=== PATIENT | female | born 1990 | race Caucasian/White ===

== ENCOUNTER 2020-12-31 08:54 | Emergency (ER) | payer OTHER, SELFPAY ==
--- NOTE | ~2020-12-31 | XR_ITS ---
EXAMINATION: XR chest 1V CLINICAL INFORMATION: Shortness of breath COMPARISON: None TECHNIQUE: XR chest 1V Tubes and lines: None Lungs and Marlin: Both lungs are clear. Pleura: Normal. Costophrenic angles are sharp. No pneumothorax. Heart and mediastinum: The mediastinum is within normal limits.. Bones: Skeletal structures included are normal for patient's age. XR/XR chest 1V IMPRESSION: Normal chest x-ray.
[2020-12-31 09:05] VITALS: BP 126/79; PULSE 91; RESP 18; TEMP 36.9; O2SAT 95; BMI 37.8
--- NOTE | 2020-12-31 09:18 | ED.GENADULT ---
HPI - General Adult General Chief complaint: General Medical Stated complaint: NUMBNESS AND TINGLING L SIDE Time Seen by Provider: 12/31/20 09:05 History of Present Illness HPI narrative: Patient complains of intermittent episodes of tingling in fingers and feet, deep breathing and shortness of breath and heart racing associated with anxiety that have been happening more and more frequently, she has no suicidal or homicidal thoughts she does not hear any voices she is not having any chest pain or shortness of breath now but does feel very anxious Related Data Previous Rx's Medication Instructions Recorded lorazepam [Ativan] 1 mg PO TID PRN #10 tab 12/31/20 Allergies Allergy/AdvReac Type Severity Reaction Status Date / Time tree and shrub pollen [TREE] Allergy Intermediate NASAL Verified 12/31/20 09:08 CONGESTION Review of Systems Review of Systems: Positives are anxiety, intermittent palpitations and shortness of breath and rapid breathing and tingling in fingers and toes Negatives are no fever no chills no dizziness no weakness no fainting no loss of consciousness no headache no neck pain no abdominal pain no nausea vomiting or diarrhea no urinary symptoms no rash no numbness or weakness Yes all other systems are reviewed and are negative PMFSH Past Medical History Source: nursing notes reviewed Social History Social History Advance Directives: No Advance Directives Information Provided: No Physical Exam Vital Signs: Vital Signs: Last Vital Signs Temp 98.5 F 12/31/20 09:05 Pulse 91 12/31/20 09:05 Resp 18 12/31/20 09:05 BP 126/79 12/31/20 09:05 Pulse Ox 95 12/31/20 09:05 Body Mass Index 37.8 General appearance is anxious appearing, no acute distress, cooperative A&O x3 Head is normocephalic atraumatic Pupils equal round reactive to light and extraocular motions are intact The pharynx is clear with moist mucous membranes The neck is supple The chest is clear to auscultation full symmetric equal breath sounds Heart rate and rhythm regular no murmur Abdomen soft nontender Extremities no rash, full range of motion x4 Neuro sensation is full and intact and symmetrical in extremities, motor is 5/5 x4, patient can walk on tiptoes, can walk on heels, gait and balance are normal, verbal interaction speech and understanding are normal, cerebellar is normal Course Course Course Narrative: EKG was a normal sinus rhythm with no acute ischemic change, no acute ST changes, [place] and QRS duration are normal, QTC is normal Chest x-ray was normal Glucose in a fingerstick was normal The patient was given an Ativan and had some relief of symptoms and is discharged to follow with primary care doctor to discuss medication for anxiety and will use the Ativan as a rescue medication for anxiety attack if needed Medical Decision Making Lab Data Labs: Lab Results 12/31/20 Range/Units 09:56 POC Glucose 87 (60-115) mg/dL Discharge Plan Discharge Clinical Impression: Anxiety Patient Disposition: Home, Self-Care Additional Instructions: I believe your symptoms are from anxiety and anxiety attacks, in the ER there was no sign of anything dangerous or abnormal physically Her exam and vital signs were normal as was EKG chest x-ray and fingerstick to check her glucose Return any time for any worse condition or concerns, feelings of self-harm, chest pain shortness of breath any concerns Follow with primary doctor when possible for discussion of possible preventative medications that will relieve her frequent anxiety There are many medications that can be helpful and if this is happening frequetly medication may be helpful Prescriptions: New lorazepam [Ativan] 1 mg tablet 1 mg PO TID PRN (Reason: anxiety) Qty: 10 RF: 0
--- NOTE | 2020-12-31 09:50 | ECG_ITS ---
Test Reason : ARM TINGLING Blood Pressure : / mmHG Vent. Rate : 075 BPM Atrial Rate : 075 BPM P-R Int : 140 ms QRS Dur : 078 ms QT Int : 386 ms P-R-T Axes : 041 067 050 degrees QTc Int : 431 ms Normal sinus rhythm Normal ECG When compared with ECG of 28-MAR-2010 15:02, No significant change was found Referred By: Chris Barr Electronically Signed By:Ryan Hankins
[2020-12-31 10:03] LABS: Glucose, Whole Blood 87 mg/dL (60-115)
[2020-12-31] MEDS: LORazepam 1 MG TABLET PO (10:14)
== END 2020-12-31 11:02 | disposition home or self-care (01) ==
PROVIDERS: Emergency Provider Emergency Medicine; PCP Nurse Practitioner Adult Health
DX: F41.9 Anxiety disorder, unspecified (principal); R20.2 Paresthesia of skin
CPT/HCPCS: 71045; 82947; 93005; 99283

== ENCOUNTER 2021-03-20 21:49 | Emergency (ER) | payer OTHER, SELFPAY ==
[2021-03-20 21:57] VITALS: BP 118/71; PULSE 89; RESP 18; TEMP 36.8; O2SAT 97
[2021-03-21 03:05] VITALS: BP 106/60; PULSE 75; RESP 18; O2SAT 99; BMI 36.8
[2021-03-21 03:08] VITALS: BP 106/60; PULSE 75; RESP 18; O2SAT 99
--- NOTE | 2021-03-21 03:26 | ED_ITS ---
HPI - Headache General Chief Complaint: Headache Stated Complaint: Headache Time Seen by Provider: 03/21/21 02:50 Source: patient Mode of arrival: ambulatory History of Present Illness HPI Narrative: Headache on the right side starting at the base the neck and wrapping anteriorly ?into the back of the eye? has been ongoing for 3 weeks without associated fever, chills, nausea, vomiting, abdominal pain, urinary pain/burning/frequency. Patient states that she noticed that she gets these headaches every time approximately mid cycle. She has been unable to get an appoint with her PCP until March. Patient denies any speech/visual/hearing changes and otherwise denies any numbness/tingling in her extremities. Related Data Previous Rx's Medication Instructions Recorded lorazepam [Ativan] 1 mg PO TID PRN #10 tab 12/31/20 ketorolac 10 mg PO Q6H PRN 5 Days #20 tab 03/21/21 Allergies Allergy/AdvReac Type Severity Reaction Status Date / Time tree and shrub pollen [TREE] Allergy Intermediate NASAL Verified 12/31/20 09:08 CONGESTION Review of Systems Review of Systems: Pertinent positives and negatives as stated in HPI 10 point review of systems is otherwise negative. PMFSH Past Medical History Source: nursing notes reviewed Medical History No known health problems Social History Social History Advance Directives: No Patient : No Physical Exam Vital Signs: Vital Signs: Last Vital Signs Temp 98.3 F 03/20/21 21:57 Pulse 74 03/21/21 04:48 Resp 16 03/21/21 04:48 BP 128/73 03/21/21 04:48 Pulse Ox 99 03/21/21 03:08 Body Mass Index 36.8 VITAL SIGNS: Reviewed. GENERAL: Well developed, well nourished, in no acute distress. HEAD: Normocephalic/atraumatic EYES: PERRLA, EOMI intact without pain, no nystagmus/pallor/icterus noted EARS: Ext canals without abnormality, TMs non-bulging and non-erythematous NOSE: Nares patent bilateral OROPHARYNX: no oral lesions noted, posterior pharynx clear LUNGS: Normal breath sounds. No adventitious sounds or accessory muscle use. SpO2<99> CARDIOVASCULAR: Regular rate and rhythm without noted murmurs ABDOMEN: Soft, non-tender, non-distended with bowel sounds. NEUROLOGIC: Alert and oriented x 4. Strength and sensation to light touch were grossly intact x 4. Course Course Course Narrative: 31-year-old female with history and clinical presentation consistent with headache and possible migraine has yet to be diagnosed. No concern for neurologic pathologies or infections and patient was provided with combination migraine treatment and re-evaluated. On re-evaluation patient has had complete resolution of her symptoms and is requesting to be discharged. Discharge Plan Discharge Clinical Impression: Headache Patient Disposition: Home, Self-Care Instructions: General Headache (ED) Additional Instructions: 1. Follow-up with your primary care provider in the next 2-3 days for re- evaluation and further outpatient management. Recommend starting a a headache journal. 2. Tylenol 1000 mg, orally, every 6 hours as needed for pain control. Do not ex ceed 4000 mg within 24 hours. Return to the ER for any acute worsening of symptoms. Prescriptions: New ketorolac 10 mg tablet 10 mg PO Q6H PRN (Reason: pain) 5 Days Qty: 20 RF: 0 No Action lorazepam [Ativan] 1 mg tablet 1 mg PO TID PRN (Reason: anxiety) Qty: 10 RF: 0 Referrals: Physician,Unknown [Primary Care Provider] - 2 days
[2021-03-21] MEDS: Butalb/Acetamin/Caff 50/325/40 TABLET 1 TAB PO (03:44)
[2021-03-21] MEDS: Ketorolac Tromethamine 15 MG/ML VIAL IM (03:44)
[2021-03-21 04:46] VITALS: BP 128/73; PULSE 74; RESP 16
[2021-03-21 04:48] VITALS: BP 128/73; PULSE 74; RESP 16
== END 2021-03-21 05:07 | disposition home or self-care (01) ==
PROVIDERS: Emergency Provider Student in an Organized Health Care Education/Training Program
DX: R51.9 Headache, unspecified (principal)
CPT/HCPCS: 96372; 99284; J1885

== ENCOUNTER 2023-11-10 22:00 | Inpatient (IN) | payer BC, SELFPAY ==
--- NOTE | ~2023-11-10 | CT_ITS ---
EXAMINATION: CT SOFT TISSUE NECK WITH CONTRAST CLINICAL INFORMATION: Facial swelling. Concern for abscess. COMPARISON: None available. TECHNIQUE: Following the intravenous administration of 60 mL of Omnipaque 350 intravenous contrast, helical imaging was performed in the axial plane with generation of coronal and sagittal reformatted images. This CT examination was performed using dose optimization techniques as appropriate, variously including the following: *Automated exposure control *Adjustment of mA and/or kV according to patient size (this includes techniques or standardized protocols for targeted exams where dose is matched to indication/reason for exam; i.e. extremities or head) *Use of iterative reconstruction technique DLP: 575 mGy-cm FINDINGS: The nasopharynx, oropharynx and hypopharynx are unremarkable. The palatine and lingual tonsils are prominent. There are scattered cervical lymph nodes measuring up to 2 cm in the submandibular region on the right. The parotid glands, submandibular glands and thyroid glands are unremarkable. There is a small right maxillary sinus opacity. The remaining visualized maxillofacial sinuses and mastoids are clear. The intracranial structures are unremarkable. The upper lung khalil are clear. There is right mandibular soft tissue swelling with a soft tissue defect and subcutaneous infiltration without fluid collection. CT/CT soft tissue neck w IV con IMPRESSION: Right mandibular soft tissue swelling with soft tissue defect and subcutaneous infiltration without fluid collection. Prominent lingual and palatine tonsils of uncertain current significance.
[2023-11-10 22:04] VITALS: BP 125/74; PULSE 92; RESP 16; TEMP 36.8; O2SAT 97; BMI 39.8
[2023-11-10] MEDS: Lidocaine HCl 2 % MPF 5 ML VIAL 10 ML INFILTRATI (22:52)
[2023-11-10] MEDS: traMADoL HCL 50 MG TABLET PO (22:52)
[2023-11-10 23:17] VITALS: BP 127/85; PULSE 85; RESP 14; TEMP 36.6; O2SAT 96
[2023-11-10 23:35] LABS: Basophils Absolute Auto 0.1 X10*3/uL (0.0-0.2); Basophils Percent Auto 0.8 % (0-2); Eosinophils Absolute Auto 0.1 X10*3/uL (0.0-0.4); Eosinophils Percent Auto 1.3 % (0-4); Hematocrit 38.2 % (37.0-47.0); Hemoglobin 12.8 g/dl (12.0-16.0); Imm Gran Abs Auto 0.02 X10*3/uL (0.00-0.03); Imm Gran Pct Auto 0.2 % (0.0-0.4); Lymphocytes Absolute Auto 1.8 X10*3/uL (1.2-4.9); Lymphocytes Percent Auto 19.6 % (20-40); MANUAL DIFF FLAG NO; Mean Corpuscular HGB Conc 33.5 g/dl (31.0-35.0); Mean Corpuscular Hemoglobin 28.2 pg (27.0-33.0); Mean Corpuscular Volume 84.1 fL (80.0-98.0); Mean Platelet Volume 8.7 fL (9.4-12.3); Monocytes Absolute Auto 0.6 X10*3/uL (0.1-1.2); Monocytes Percent Auto 6.6 % (2-11); Neutrophils Absolute Auto 6.4 x10*3/uL (2.0-8.3); Neutrophils Percent Auto 71.5 % (45-73); Platelet Count 408 X10*3/uL (160-400); Red Blood Count 4.54 X10*6/uL (4.20-5.50); Red Cell Distribution Width 12.8 % (11.0-16.0)
--- NOTE | 2023-11-10 23:35 | ED.SKABFB ---
HPI - Skin/Abscess/Foreign Bdy General Chief complaint: Skin/Abscess/Foreign Body Stated complaint: rt side pimple/abscess Time Seen by Provider: 11/10/23 22:39 Source: patient Mode of arrival: ambulatory Limitations: no limitations History of Present Illness HPI narrative: Patient comes to the emergency room complaining of an abscess to the right side of the jaw. Patient states it started out as a pimple approximately 4 days ago. Two days ago, patient will needle to the fire and then inserted on the abscess, swirled it to make the opening bigger to drain the pus. Patient states that over last 2 days, the abscess increase in size, no very painful to touch. Patient denies fever or chills. Patient has noted that there is pus draining Related Data Previous Rx's Medication Instructions Recorded lorazepam 1 mg tablet (Ativan) 1 mg PO TID PRN anxiety #10 tabs 12/31/20 ketorolac 10 mg tablet 10 mg PO Q6H PRN pain 5 days #20 03/21/21 tabs Allergies Allergy/AdvReac Type Severity Reaction Status Date / Time tree and shrub pollen [TREE] Allergy Intermediate NASAL Verified 11/10/23 22:04 CONGESTION Review of Systems Review of Systems: Constitutional : No Weight loss, No Fever, No Chills, No Night Sweats, No Fatigue, No Malaise ENT/Mouth : No Hearing loss, No Ear Pain, No Nasal Congestion, No Sinus Pain, No Hoarseness, No sore throat, No Rhinorrhea, No Swallowing Difficulty Eyes: No Eye Pain, No Swelling, No Redness, No Foreign Body, No Discharge, No Vision Changes Cardiovascular : No Chest Pain, No SOB, No Dyspnea on Exertion, No Orthopnea, No Edema, No Palpitations Respiratory : No Cough, No Sputum, No Wheezing, No Smoke Exposure, No Dyspnea Gastrointestinal : No Nausea, No Vomiting, No Diarrhea, No Constipation, No abdominal Pain, No Hematochezia, No Melena Genitourinary : no irregular bleeding, No Dysuria, No Urinary Frequency, No Hematuria, No Urinary Incontinence, No Urgency, No Flank Pain, No Urinary Flow Changes, No Hesitancy Musculoskeletal : No joint pain, No Myalgias, No Joint Swelling Skin : Complaining of an enlarging abscess on the right side of the jaw Neuro : No Weakness, No Numbness, No Paresthesias, No Loss of Consciousness, No Dizziness, No Headache Psych : No Anxiety/Panic, No Depression, No SI/HI/AH/VH, No Social Issues, Heme/Lymph: No Bruising, No Bleeding,No Lymphadenopathy Endocrine : No Polyuria, No Polydipsia, No Temperature Intolerance [facility] Past Medical History Medical History No known health problems Social History Social History Smoked in Last 30 Days: No Use of substances other than those prescribed or required for medical reasons: No Advance Directives: No Advance Directives Information Provided: No Patient : No Physical Exam Vital Signs: Vital Signs: Last Vital Signs Temp 97.8 F 11/10/23 23:17 Pulse 85 11/10/23 23:17 Resp 14 11/10/23 23:17 BP 127/85 11/10/23 23:17 Pulse Ox 96 11/10/23 23:17 O2 Del Method Room Air 11/10/23 23:17 BMI result Body Mass Index 39.8 Const: Other: Appearance: Alert. Oriented X3. No acute distress. Eyes: Pupils equal, round and reactive to light. ENT: Pharynx normal. Neck: Normal inspection. Neck supple. No lymph nodes noted. No crepitus CVS: Normal heart rate and rhythm. Pulses normal. Normal S1 and S2 Respiratory: No respiratory distress. Breath sounds normal. No Wheezing. No rales Abdomen: Soft and nontender. No rigidity. No distention. Skin: Skin warm and dry. Patient has 1.5 cm x 1.5 cm on the right side of the jaw, approximately 1 cm deep. Patient has erythema around the area, pus draining see pictures below Extremities: No lower extremity edema. No Lacerations. No Rash Neuro: Oriented X 3. No motor deficit. No sensory deficit. Moving all extremities. No slurred speech. CN 2 through 12 grossly intact Psych: calm, cooperative, normal affect Course Course Course Narrative: - Medications Administered Generic Name Dose Route Start Last Admin Trade Name Freq PRN Reason Stop Dose Admin Vancomycin HCl 2,000 mg in 500 mls @ 250 mls/hr 11/10/23 23:30 11/11/23 00:37 Vancomycin/Ns IV 11/11/23 01:29 250 mls/hr ONCE ONE Administration Discontinued Medications Generic Name Dose Route Start Last Admin Trade Name Josefa PRN Reason Stop Dose Admin Sodium Chloride 1,000 mls @ 999 mls/hr 11/10/23 23:12 11/10/23 23:52 Ns IVCONT 11/11/23 00:12 999 mls/hr .Q1H1M ONE Administration Piperacillin Sod/Tazobactam 50 mls @ 100 mls/hr 11/10/23 23:12 11/11/23 00:26 Sod 3.375 gm/ Sodium Chloride IV 11/10/23 23:41 Infused ONCE ONE Infusion Lidocaine HCl 10 ml 11/10/23 22:42 11/10/23 22:52 Lidocaine Hcl 2 % Mpf 5 Ml Vial INFILTRATI 11/10/23 22:43 10 ml ONCE ONE Administration Tramadol HCl 50 mg 11/10/23 22:43 11/10/23 22:52 Tramadol Hcl 50 Mg Tablet PO 11/10/23 22:44 50 mg ONCE ONE Administration Medical Decision Making Medical Decision Making [facility] Narrative: -the skin was numbed with lidocaine and has not. There was a blister with pus protruding. It was removed, which revealed a deep ulcer in the skin. The area was irrigated, packing was applied. -patient's labs are unremarkable. However, this is an extensive lesion to the face. Patient was given IV antibiotics, vanco and Zosyn. The surrounding area has significant induration. A CT scan has been ordered to rule out any other abscesses underneath the skin in the surrounding area. -the CT scan is pending. -I discussed the patient with Dr. Marroquin from the Medicine team, patient being admitted pending the CT scan. -sign-out given to Dr. House Differential Diagnosis Differential Diagnoses: The differential diagnosis associated with the presentation includes (Abscess, cellulitis, puncture wound) Admission/Observation Consideration of admission/observation: Escalation of care including admission/observation considered Consult Healthcare Provider Management of the patient was discussed with: Hospitalist Lab Data [facility] Lab Attestation statement: I reviewed the patient's lab results. 11/10/23 23:26 11/10/23 23:26 Labs: Lab Results 11/10/23 Range/Units 23:26 WBC 9.0 (4.8-10.8) X10*3/uL RBC 4.54 (4.20-5.50) X10*6/uL Hgb 12.8 (12.0-16.0) g/dl Hct 38.2 (37.0-47.0) % MCV 84.1 (80.0-98.0) fL MCH 28.2 (27.0-33.0) pg MCHC 33.5 (31.0-35.0) g/dl RDW 12.8 (11.0-16.0) % Plt Count 408 H (160-400) X10*3/uL MPV 8.7 L (9.4-12.3) fL Immature Gran % (Auto) 0.2 (0.0-0.4) % Neut % (Auto) 71.5 (45-73) % Lymph % (Auto) 19.6 L (20-40) % [place] % (Auto) 6.6 (2-11) % Eos % (Auto) 1.3 (0-4) % Baso % (Auto) 0.8 (0-2) % Lymph # (Auto) 1.8 (1.2-4.9) X10*3/uL [place] # (Auto) 0.6 (0.1-1.2) X10*3/uL Eos # (Auto) 0.1 (0.0-0.4) X10*3/uL Baso # (Auto) 0.1 (0.0-0.2) X10*3/uL Abs Immat Gran (auto) 0.02 (0.00-0.03) X10*3/uL Absolute Neuts (auto) 6.4 (2.0-8.3) x10*3/uL Absolute Nucleated RBC 0.000 (0.0-0.012) X10*3/uL Nucleated RBC % (auto) 0.0 (0.0-0.2) /100WBC Sodium 141 (135-145) mmol/L Potassium 3.9 (3.3-5.1) mmol/L Chloride 108 (96-108) mmol/L Carbon Dioxide 23 (22-29) mmol/L Anion Gap 14 (12-20) BUN 12 (9-16) mg/dL Creatinine 1.16 (0.5-1.4) mg/dL Estim Creat Clear Calc 87.4 Estimated GFR 54 Random Glucose 110 (60-115) mg/dL Lactic Acid 1.2 (0.5-2.0) mmol/L Calcium 9.1 (8.4-10.2) mg/dL Total Bilirubin 0.3 (0.0-1.0) mg/dL Direct Bilirubin 0.1 (0.0-0.5) mg/dL AST 11 (5-31) U/L ALT 13 (0-31) U/L Alkaline Phosphatase 70 (39-117) U/L Total Protein 7.3 (6.5-8.0) g/dL Albumin 4.0 (3.5-5.0) g/dL Critical Care Time Critical Care Time Critical Care Time: Yes Total Critical Care Time: 60 Attestation: I have personally provided critical care time. Time includes review of lab data, radiology results, discussion with consultants, and monitoring for potential decompensation. Intervention performed as documented. Discharge Plan Discharge Clinical Impression: Abscess of skin or subcutaneous tissue Patient Disposition: Admitted As Inpatient
[2023-11-10 23:46] LABS: Lactic Acid 1.2 mmol/L (0.5-2.0)
[2023-11-10 23:52] LABS: Alanine Aminotransferase 13 U/L (0-31); Alkaline Phosphatase 70 U/L (39-117); Anion Gap 14 (12-20); Aspartate Amino Transferase 11 U/L (5-31); Bilirubin Direct 0.1 mg/dL (0.0-0.5); Bilirubin Total 0.3 mg/dL (0.0-1.0); Blood Urea Nitrogen 12 mg/dL (9-16); Calcium 9.1 mg/dL (8.4-10.2); Carbon Dioxide 23 mmol/L (22-29); Chloride 108 mmol/L (96-108); Creatinine Clr Calc Pharmacy 87.4; Estimated Glomerular Filt Rate 54; Glucose Random 110 mg/dL (60-115); Potassium 3.9 mmol/L (3.3-5.1); Sodium 141 mmol/L (135-145); Total Protein 7.3 g/dL (6.5-8.0)
[2023-11-10] MEDS: 0.9 % Sodium Chloride 1,000 ML 999 ML IVCONT (23:52)
[2023-11-10] MEDS: Piperacillin Sodium/Tazobactam 3.375 GM in 0.9 % Sodium Chloride 50 ML IV (23:53)
[2023-11-11] MEDS: vancomycin/NS 2,000 MG/500 ML PLAST..BAG 250 MG IV (00:37)
[2023-11-11] MEDS: iohexoL 350 MG/ML 100 ML INFUS..BTL 60 ML IV (00:57)
[2023-11-11] MEDS: 0.9 % Sodium Chloride 1,000 ML 100 ML IVCONT ×2 (01:14→11:22)
--- NOTE | 2023-11-11 01:54 | P.HPHOSP_ITS ---
History of Present Illness Date of Service: 11/11/23 Attending physician on admission: Una Valdez Chief Complaint: Facial pain Kimberly Landis is a 33 years old woman with no significant past medical history presents to the emergency department complaining of right face/jaw swelling and pain after popping a pimple. The next day she inserted a needle to the area to drain it as a pain pill was getting bigger. She denied any fevers or chills. She did not report any headache, palpitations or dizziness. She also denied any cardiopulmonary, gastrointestinal or genitourinary symptoms. In the ED, she was found to have stable vital signs. Blood workup showed no leukocytosis. Lactic acid is normal. Renal liver function are normal. And there are no significant electrolyte imbalances. A soft tissue neck CT scan was ordered, results are still pending. ED tx: Zosyn 3.375 g IV, vancomycin 2 g, tramadol 50 mg PO. Review of Systems 2 Review of Systems: All 12 systems were reviewed and normal except as noted in HPI. [facility] Medical History (Updated 11/11/23 @ 02:13 by Una Valdez MD) Anxiety No known health problems Social History Patient Tobacco Use Status: Never used Tobacco Smoked in Last 30 Days: No Use of substances other than those prescribed or required for medical reasons: No Advance Directives: No Advance Directives Information Provided: No Nutrition Risks: No Nutritional Risk Patient : No Meds Allergies Allergy/AdvReac Type Severity Reaction Status Date / Time tree and shrub pollen [TREE] Allergy Intermediate NASAL Verified 11/10/23 22:04 CONGESTION Active Medications: Current Medications Acetaminophen (Acetaminophen 325 Mg Tablet) 975 mg PO Q6H PRN PRN Reason: Pain, Moderate(Pain Scale 4-6) Sodium Chloride (Ns) 1,000 mls @ 100 mls/hr IVCONT .Q10H JED Last Admin: 11/11/23 01:14 Dose: 100 mls/hr Piperacillin Sod/Tazobactam (Sod 3.375 gm/ Sodium Chloride) 50 mls @ 100 mls/hr IV Q6H JED Ibuprofen (Ibuprofen 400 Mg Tablet) 400 mg PO Q6H PRN PRN Reason: Pain, Severe (Pain Scale 7-10) Pharmacy Consult (Consult Rx Vancomycin Dosing) 1 each MISCELLANE DAILY PRN PRN Reason: Consult order Sodium Chloride (0.9 % Sodium Chloride Flush 3 Ml Syringe) 3 ml IVFLUSH QSHIFT [facility] Home Medications Medication Instructions Recorded Confirmed Last Taken Type sertraline 50 mg tablet 50 mg PO DAILY 11/11/23 11/11/23 Unknown History Physical Exam 2 Vital Signs and Narrative: Vital Signs: Last Vital Signs Temp 97.8 F 11/10/23 23:17 Pulse 85 11/10/23 23:17 Resp 14 11/10/23 23:17 BP 127/85 11/10/23 23:17 Pulse Ox 96 11/10/23 23:17 O2 Del Method Room Air 11/10/23 23:17 BMI result Body Mass Index 39.8 Constitutional - Awake and Alert, No apparent distress. Afebrile. HEENT- Normocephalic. Pupils equally round. No scleral icterus. Right mandibular area with palpable indurated area, ulcerated area and erythematous borders. Heart - S1S2, RRR. Lungs - Normal lung expansion, Normal respiratory effort, No respiratory distress, CTA bilaterally Gastrointestinal - NT / ND Extremities - no swelling Skin - Warm/Dry Neurological - Alert & oriented x3. No focal weakness grossly noted. Normal speech. Normal behavior. Psychological - Appropriate affect Results Labs 11/10/23 23:26 11/10/23 23:26 Labs: Laboratory Results - last 24 hr 11/10/23 23:26 MCV 84.1 MCH 28.2 MCHC 33.5 RDW 12.8 Plt Count 408 H MPV 8.7 L Immature Gran % (Auto) 0.2 Neut % (Auto) 71.5 Lymph % (Auto) 19.6 L [place] % (Auto) 6.6 Eos % (Auto) 1.3 Baso % (Auto) 0.8 Lymph # (Auto) 1.8 [place] # (Auto) 0.6 Eos # (Auto) 0.1 Baso # (Auto) 0.1 Abs Immat Gran (auto) 0.02 Absolute Neuts (auto) 6.4 Absolute Nucleated RBC 0.000 Nucleated RBC % (auto) 0.0 Anion Gap 14 Estim Creat Clear Calc 87.4 Estimated GFR 54 Random Glucose 110 Lactic Acid 1.2 Calcium 9.1 Total Bilirubin 0.3 Direct Bilirubin 0.1 AST 11 ALT 13 Alkaline Phosphatase 70 Total Protein 7.3 Albumin 4.0 Assessment and Plan (1) Abscess of skin or subcutaneous tissue: Qualifiers: Site of cutaneous abscess: face Qualified Code(s): L02.01 - Cutaneous abscess of face Status: Acute (2) Anxiety: Status: Acute Plan Kimberly Landis is a 33 years old woman admitted with: * Right facial abscess associated with cellulitis. No sepsis criteria. Pus was removed in ED with local anesthetic (no I&D). Ulcerated area. Admit to hospitalist service. Continue empiric IV antibiotic therapy with vancomycin and Zosyn. Motrin and Tylenol as needed for pain. Check nasal MRSA. Local care. * History of anxiety. Continue sertraline. DVT prophylaxis: None. Patient is ambulating well. Code status: Full. Patient will need at least 2 midnight for right facial abscess and cellulitis treatment. The infection is quite extensive and localize in the face. She will benefit from empiric IV antibiotic therapy with Zosyn and vancomycin. Quality Stroke Does the patient have a stroke diagnosis?: No VTE Prior VTE?: No VTE Risk Level:: Medical - low VTE Device Contraindication: Treatment Not Indicated VTE Drug Contraindication: Treatment Not Indicated
[2023-11-11] MEDS: ondansetron HCL 4 MG/2 ML VIAL IVPUSH (03:13)
[2023-11-11 04:00] VITALS: BP 119/65; PULSE 92; RESP 16; TEMP 36.2; O2SAT 100
[2023-11-11] MEDS: Piperacillin Sodium/Tazobactam 3.375 GM in 0.9 % Sodium Chloride 50 ML IV ×4 (05:53→23:03)
[2023-11-11 05:56] LABS: MANUAL DIFF FLAG NO
[2023-11-11 06:00] LABS: Basophils Absolute Auto 0.1 X10*3/uL (0.0-0.2); Basophils Percent Auto 0.4 % (0-2); Eosinophils Absolute Auto 0.1 X10*3/uL (0.0-0.4); Eosinophils Percent Auto 0.6 % (0-4); Hemoglobin 12.2 g/dl (12.0-16.0); Imm Gran Abs Auto 0.05 X10*3/uL (0.00-0.03); Imm Gran Pct Auto 0.4 % (0.0-0.4); Lymphocytes Absolute Auto 1.6 X10*3/uL (1.2-4.9); Lymphocytes Percent Auto 13.3 % (20-40); Mean Corpuscular Hemoglobin 28.4 pg (27.0-33.0); Mean Corpuscular Volume 86.2 fL (80.0-98.0); Mean Platelet Volume 9.4 fL (9.4-12.3); Monocytes Absolute Auto 0.7 X10*3/uL (0.1-1.2); Monocytes Percent Auto 5.5 % (2-11); Neutrophils Absolute Auto 9.9 x10*3/uL (2.0-8.3); Neutrophils Percent Auto 79.8 % (45-73); Platelet Count 396 X10*3/uL (160-400); Red Blood Count 4.29 X10*6/uL (4.20-5.50); Red Cell Distribution Width 12.8 % (11.0-16.0); White Blood Count 12.4 X10*3/uL (4.8-10.8)
[2023-11-11 07:39] VITALS: BP 111/65; PULSE 91; RESP 18; TEMP 36.3; O2SAT 99
--- NOTE | 2023-11-11 08:29 | PHA.MEDREC ---
Pharmacy Consult ? Medication Reconciliation Pharmacy has completed the medication reconciliation with patient, pt confirmed meds.
--- NOTE | 2023-11-11 09:50 | MHC.CM.PN ---
Patient is from home w/ . Functionally independent. No services or DME. PCP: Martha Washington, MARGE @ [facility] HCP: Patient completed HCP naming agents 1) Pedro Wu [phone], 2) mother Cinthya Woods [phone] DP: Goal is home self care, does not anticipate the need for any services, to transport. CM will continue to follow.
[2023-11-11 10:05] LABS: Creatinine Clr Calc Pharmacy 104.6; Estimated Glomerular Filt Rate > 60
--- NOTE | 2023-11-11 10:34 | PHA.PROG ---
Admission Date/Time: November 11, 2023 00:50 Indication: Skin Weight in k.8 kg Adjusted body weight in K.3 Serum Creatinine - Last 168 Hours 11/10/23 11/11/23 23:26 09:17 Creatinine 1.16 0.97 Estimated CrCl and GFR - Last 168 Hours 11/10/23 11/11/23 23:26 09:17 Estim Creat Clear Calc 87.4 104.6 Estimated GFR 54 > 60 Vancomycin Loading Dose: 2,000 mg Current Vancomycin Dosing Regimen: 1,250 mg Q12H Vancomycin Monitoring using AUC goal of 400 - 600 range with trough as surrogate marker: 473 Date and Time for next Vancomycin Level to be drawn: 11/12/23 at 10:00 Pharmacist Comments on Vancomycin Plan: Vancomycin dosing will take advantage of [employer] as a clinical decision support tool that uses Bayesian modeling to calculate individual patient's pharmacokinetic parameters and forecast the patient's drug concentration time course with the target goal AUC 24 range of 400 - 600 mg/L/hr.
[2023-11-11] MEDS: vancomycin HCL 1,250 MG in 0.9 % Sodium Chloride 250 ML 166.67 MG IV ×2 (12:16→23:44)
--- NOTE | 2023-11-11 12:35 | PM.EVENT ---
Event Note Date of Service: 11/11/23 Event Note: Seen and evaluated this morning Denies any fever or chills Wound covered by dressing Continue IV antiibotics Time Spent With Patient Time: Total time managing care of this patient today ____ minutes.
--- NOTE | 2023-11-11 14:55 | HO.WOUND ---
Wound Consult: Initial 33yr old? admitted to [facility] [place] on 11/11/23 00:50 - See progress notes and H&P for detailed history.? Wound consult placed for Right Mandible wound s/p I&D in ED.? Patient agreeable to assessment and photo documentation.? Right Mandible Etiology: ??Abscess site - s/p I&D site Measurements: 1cm x 1cm x 0.6cm Wound Bed: red moist wound bed marbled wound bed with adherent yellow slough Drainage / Odor: Lanza yellow serosang drainage noted on packing at time of removal Edges: Nonattached Kasey wound: Circumferential Induration noted - swelling, pink erythema, mild warmth noted, no flutuance noted Pain: Decreased since admission per pt statement Goals of Treatment: ? Moist wound healing - packing with Durafiber AG Recommendations: 1. Right Jaw - Cleanse and irrigate with NS, pat dry. Apply barrier wipe to periwound. Lightly pack wound bed with cut strip of Durafiber AG, cover with Foam dressing. Change Daily. At time of discharge may push dressing changes to be completed every other day. Patient may shower. Re-consult wound care Nurse for wound deterioration or wound changes.
[2023-11-11 15:07] VITALS: BP 118/58; PULSE 89; RESP 18; TEMP 36.1; O2SAT 96
[2023-11-11] MEDS: Sertraline HCL 50 MG TABLET PO (17:38)
[2023-11-11 19:31] VITALS: BP 122/77; PULSE 80; RESP 18; TEMP 36.1; O2SAT 99
[2023-11-12] MEDS: 0.9 % Sodium Chloride 1,000 ML 100 ML IVCONT ×2 (01:58→17:20)
[2023-11-12 03:11] VITALS: BP 117/62; PULSE 86; RESP 16; TEMP 36.1; O2SAT 98
[2023-11-12] MEDS: Piperacillin Sodium/Tazobactam 3.375 GM in 0.9 % Sodium Chloride 50 ML IV ×4 (05:47→23:13)
[2023-11-12 06:49] LABS: Anion Gap 11 (12-20); Blood Urea Nitrogen 11 mg/dL (9-16); Calcium 8.6 mg/dL (8.4-10.2); Carbon Dioxide 24 mmol/L (22-29); Chloride 110 mmol/L (96-108); Creatinine Clr Calc Pharmacy 117.9; Estimated Glomerular Filt Rate > 60; Glucose Random 98 mg/dL (60-115); Potassium 3.8 mmol/L (3.3-5.1); Sodium 141 mmol/L (135-145)
[2023-11-12 07:18] VITALS: BP 132/76; PULSE 75; RESP 20; TEMP 36.1; O2SAT 99
--- NOTE | 2023-11-12 09:54 | P.PNIM_ITS ---
Subjective Subjective Date of Service: 11/12/23 Interval History: seen and evaluated this morning feels better overall induration going down still has drainage from the wound Review of Systems Review of Systems: Yes all other systems are reviewed and are negative Physical Exam 2 Vital Signs: Vital Signs: Last Vital Signs Temp 97.0 F 11/12/23 07:18 Pulse 75 11/12/23 07:18 Resp 20 11/12/23 07:18 BP 132/76 11/12/23 07:18 Pulse Ox 99 11/12/23 07:18 O2 Del Method Room Air 11/12/23 07:18 BMI result Body Mass Index 39.8 Const: Other: Appearance: Alert. Oriented X3. No acute distress. Eyes: Pupils equal, round and reactive to light. ENT: Pharynx normal. Neck: Normal inspection. Neck supple. No lymph nodes noted. No crepitus CVS: Normal heart rate and rhythm. Pulses normal. Normal S1 and S2 Respiratory: No respiratory distress. Breath sounds normal. No Wheezing. No rales Abdomen: Soft and nontender. No rigidity. No distention. Skin: Skin warm and dry. Patient has 1.5 cm x 1.5 cm on the right side of the jaw, approximately 1 cm deep. decreased erythema and induration Extremities: No lower extremity edema. No Lacerations. No Rash Neuro: Oriented X 3. No motor deficit. No sensory deficit. Moving all extremities. No slurred speech. Psych: calm, cooperative, normal affect Objective Data Active Medications Acetaminophen (Acetaminophen 325 Mg Tablet) 975 mg PO Q6H PRN PRN Reason: Pain, Moderate(Pain Scale 4-6) Sodium Chloride (Ns) 1,000 mls @ 100 mls/hr IVCONT .Q10H [facility] Last Admin: 11/12/23 07:23 Dose: Not Given Documented By: MELY Non-Admin Reason: IV Running Piperacillin Sod/Tazobactam (Sod 3.375 gm/ Sodium Chloride) 50 mls @ 100 mls/hr IV Q6H [facility] Last Infusion: 11/12/23 06:25 Dose: Infused Documented By: PRINCE Vancomycin HCl 1,250 mg/ (Sodium Chloride) 250 mls @ 166.667 mls/hr IV Q12H [facility] Last Infusion: 11/12/23 01:15 Dose: Infused Documented By: PRINCE Ibuprofen (Ibuprofen 400 Mg Tablet) 400 mg PO Q6H PRN PRN Reason: Pain, Severe (Pain Scale 7-10) Ondansetron HCl (Ondansetron Hcl 4 Mg/2 Ml Vial) 4 mg IVPUSH Q4H PRN PRN Reason: Nausea and Vomiting Last Admin: 11/11/23 03:13 Dose: 4 mg Documented By: PRINCE Pharmacy Consult (Consult Rx Vancomycin Dosing) 1 each MISCELLANE DAILY PRN PRN Reason: Consult order Sertraline HCl (Sertraline Hcl 50 Mg Tablet) 50 mg PO DAILY@1800 [facility] Last Admin: 11/11/23 17:38 Dose: 50 mg Documented By: KOBE Sodium Chloride (0.9 % Sodium Chloride Flush 3 Ml Syringe) 3 ml IVFLUSH QSHIFT [facility] Last Admin: 11/12/23 06:53 Dose: Not Given Documented By: MELY Non-Admin Reason: IV Running Labs 11/11/23 04:50 11/12/23 05:53 Labs: Laboratory Results - last 24 hr 11/11/23 11/12/23 09:17 05:53 Anion Gap 11 L Estim Creat Clear Calc 104.6 117.9 Estimated GFR > 60 > 60 Random Glucose 98 Calcium 8.6 Microbiology Microbiology Results: Microbiology 11/11/23 02:45 MRSA Culture - Preliminary Nares Culture in progress. 11/10/23 23:26 Blood Culture - Preliminary Blood - Arterial No growth after 24 hours. 11/10/23 23:26 Blood Culture - Preliminary Blood - Arterial No growth after 24 hours. Assessment and Plan (1) Abscess of skin or subcutaneous tissue: Status: Acute Plan Kimberly Landis is a 33 years old woman admitted with: # Right facial abscess associated with cellulitis. drained and Pus was removed in ED with local anesthetic (no I&D) Continue IV antibiotic therapy with vancomycin and Zosyn. Motrin and Tylenol as needed for pain. pending blood cultures and nasal MRSA Local wound care. follow vancomycin trough # History of anxiety. Continue sertraline. DVT prophylaxis: None. early ambulation Code status: Full. Patient will need overnight for right facial abscess and cellulitis treatment. The infection is quite extensive and localize in the face. She will benefit from empiric IV antibiotic therapy with Zosyn and vancomycin. Quality Stroke Does the patient have a stroke diagnosis?: No VTE Prior VTE?: No VTE Risk Level:: Medical - low VTE Device Contraindication: Treatment Not Indicated VTE Drug Contraindication: Treatment Not Indicated
[2023-11-12 10:43] LABS: Vancomycin Random 10.4 mcg/mL (15-20)
--- NOTE | 2023-11-12 11:03 | HE.PHANOTE ---
RE VANCO DOSING TROUGH IS LOW AT 10.4 BUT RENAL FUNCTION STILL STABLE. WILL CHANGE DOSE TO 1000 Q8 TO ACHIEVE THERAPEUTIC TROUGH AND AUC. EXPECTED AUC 439 AND TROUGH 13.9 BUT PT IS SLIGHTLY HIGHER THAN EXPECTED SO HOPING TO SEE TROUGH CLOSE TO 15. NEXT TROUGH TO BE DRAWN 11/13 @1000.
[2023-11-12] MEDS: vancomycin HCL 1,000 MG in 0.9 % Sodium Chloride 250 ML 270 MG IV ×2 (13:50→20:23)
[2023-11-12 15:42] VITALS: BP 112/75; PULSE 90; RESP 20; TEMP 36.6; O2SAT 97
[2023-11-12] MEDS: Sertraline HCL 50 MG TABLET PO (17:19)
[2023-11-12 20:04] VITALS: BP 124/68; PULSE 86; RESP 20; TEMP 36.6; O2SAT 100
[2023-11-13 02:57] VITALS: BP 128/84; PULSE 75; RESP 16; TEMP 36.1; O2SAT 100
[2023-11-13] MEDS: vancomycin HCL 1,000 MG in 0.9 % Sodium Chloride 250 ML 270 MG IV (03:12)
[2023-11-13] MEDS: Piperacillin Sodium/Tazobactam 3.375 GM in 0.9 % Sodium Chloride 50 ML IV (05:13)
[2023-11-13] MEDS: 0.9 % Sodium Chloride Flush 3 ML SYRINGE IVFLUSH (07:11)
[2023-11-13 07:39] VITALS: BP 137/75; PULSE 80; RESP 18; TEMP 36.3; O2SAT 99
[2023-11-13 07:46] LABS: Creatinine Clr Calc Pharmacy 122.1; Estimated Glomerular Filt Rate > 60
--- NOTE | 2023-11-13 09:17 | PM.DS ---
DS: Providers Provider Date of Service: 11/13/23 Date of admission: 11/11/23 00:50 Primary care physician: Martha Washington NP Consults: 11/11/23 13:55 Consult to Wound Care Routine Reason for consultation: Right mandible cellulitis DS: Diagnosis Discharge Diagnosis (1) Abscess of skin or subcutaneous tissue: Status: Acute DS: Summary Hospital Course Hospital Course: from initial hpi: 33 years old woman with no significant past medical history presents to the emergency department complaining of right face/jaw swelling and pain after popping a pimple. The next day she inserted a needle to the area to drain it as a pain pill was getting bigger. She denied any fevers or chills. She did not report any headache, palpitations or dizziness. She also denied any cardiopulmonary, gastrointestinal or genitourinary symptoms. In the ED, she was found to have stable vital signs. Blood workup showed no leukocytosis. Lactic acid is normal. Renal liver function are normal. And there are no significant electrolyte imbalances. A soft tissue neck CT scan was ordered, results are still pending. ED tx: Zosyn 3.375 g IV, vancomycin 2 g, tramadol 50 mg PO. hospital course: Patient was admitted for right facial abscess associated with cellulitis. She was given IV vancomycin and Zosyn. Cultures were negative. Received local dressings. Cellulitis significantly improved. She will be discharged on 7 more days of p.o. doxycycline. For history of anxiety was continued on sertraline. Time Attestation Discharge coordination time: Greater than 30 minutes Quality: Safe Use of Opioids Does Pt have an Active Cancer Diagnosis on the Problem List?: No Quality: Stroke Does the patient have a stroke diagnosis?: No Physical Exam Vital Signs: Vital Signs: Last Vital Signs Temp 97.3 F 11/13/23 07:39 Pulse 80 11/13/23 07:39 Resp 18 11/13/23 07:39 BP 137/75 11/13/23 07:39 Pulse Ox 99 11/13/23 07:39 O2 Del Method Room Air 11/13/23 07:39 BMI result Body Mass Index 39.8 much improved right jaw erythema and swelling DS: Data Data Completed and Pending Labs on day of discharge: Laboratory Results - last 24 hr 11/12/23 11/13/23 10:08 07:04 Hold Purple Top SEE NOTE Creatinine 0.83 Estim Creat Clear Calc 122.1 Estimated GFR > 60 Random Vancomycin 10.4 L Preliminary micro results at discharge 11/10/23 23:26 Blood Culture - Preliminary Blood - Arterial No growth after 48 hours. 11/10/23 23:26 Blood Culture - Preliminary Blood - Arterial No growth after 48 hours. Discharge Plan Discharge Anticipated Discharge Date/Time: 11/13/23 09:14 Patient Disposition: Home, Self-Care Discharge Diagnosis: facial abcess Referrals: Martha Washington NP [Primary Care Provider] - 1 Week Discharge Medications: New doxycycline hyclate 100 mg capsule 100 mg PO BID Qty: 14 0RF Continued sertraline 50 mg tablet 50 mg PO DAILY acetaminophen 325 mg Tablet 650 mg PO Q6H PRN (Reason: Pain) Discharge Orders: Discharge Order (Routine); Ordered 11/13/23 Ordered By: Rene Smith Diet: Advance to usual diet Activity on Discharge: As tolerated Stand Alone Forms: Patient Portal Discharge page Care Plan Goals: recovery Health Concerns: facial abscess Plan of Treatment: doxy 7 more days (avoid while on doxy) Cleanse and irrigate with NS, pat dry. Apply barrier wipe to periwound - every other day Assessment: see above
--- NOTE | 2023-11-13 09:31 | MHC.CM.PN ---
EMR reviewed. Patient is medically cleared for dc home self care, PO abx. will provide transportation at 10:30am. RN aware.
--- NOTE | 2023-11-13 10:21 | HO.WOUND ---
Wound Consult: Follow up 33yr old? admitted to [facility] [place] on 11/11/23 00:50 - See progress notes and H&P for detailed history.? Wound consult placed for Right Mandible wound s/p I&D in ED.? Patient agreeable to assessment and photo documentation.? 11/11/23 11/13/23 Right Mandible Etiology: ??Abscess site - s/p Drainage Measurements: 1cm x 1cm x 0.6cm Wound Bed: red moist wound bed marbled wound bed with less adherent yellow slough Drainage / Odor: scant yellow serosang drainage noted on packing at time of removal Edges: Nonattached Kasey wound: improving circumferential Induration noted - minimal swelling, mild erythema,No warmth noted, no flutuance noted Pain: Decreased since admission per pt statement Goals of Treatment: ? Moist wound healing - packing with Durafiber AG No new topical recommendations needed at this time - patient given supplies for home. Patient was able to walk me through a dressing change. Pt to follow up outpt with PCP. Recommendations: 1. Right Jaw - Cleanse and irrigate with NS, pat dry. Apply barrier wipe to periwound. Lightly pack wound bed with cut strip of Durafiber AG, cover with Foam dressing. Change every other day. Patient may shower. Re-consult wound care Nurse for wound deterioration or wound changes.
== END 2023-11-13 10:28 | disposition home or self-care (01) | DRG 383 ==
LOC: HO.ED 23:51 → HO.EDOVER 11-11 01:03 → HO.S3 11-11 01:13
PROVIDERS: Student in an Organized Health Care Education/Training Program; Admitting Provider Internal Medicine; Emergency Provider Emergency Medicine; PCP Nurse Practitioner Adult Health; Visit Provider Internal Medicine
DX: L02.01 Cutaneous abscess of face (principal); L03.211 Cellulitis of face; F41.9 Anxiety disorder, unspecified; Z79.899 Other long term (current) drug therapy
CPT/HCPCS: 36415; 70491; 80048; 80076; 80202; 82565; 83605; 85025; 87040; 87081; 87640; 87641; 99285; 99499; J2405; J2543; J3370; J3371; Q9967

== ENCOUNTER → 2023-11-11 00:50 | Outpatient (BNV) | payer BC, SELFPAY | PROVIDERS: Admitting Provider Internal Medicine; Emergency Provider Emergency Medicine; Visit Provider Internal Medicine | DX: L03.211 Cellulitis of face (principal); L02.01 Cutaneous abscess of face; F41.9 Anxiety disorder, unspecified | CPT/HCPCS: 99222; 99233; 99238 ==

== ENCOUNTER 2023-12-04 04:16 | Emergency (ER) | payer BC, SELFPAY ==
[2023-12-04 04:21] VITALS: BP 132/86; PULSE 75; RESP 18; TEMP 37; O2SAT 98
[2023-12-04 04:24] VITALS: BMI 39.5
[2023-12-04 04:36] LABS: Basophils Absolute Auto 0.1 X10*3/uL (0.0-0.2); Basophils Percent Auto 0.8 % (0-2); Eosinophils Absolute Auto 0.2 X10*3/uL (0.0-0.4); Eosinophils Percent Auto 1.9 % (0-4); Hematocrit 39.6 % (37.0-47.0); Hemoglobin 13.2 g/dl (12.0-16.0); Imm Gran Abs Auto 0.03 X10*3/uL (0.00-0.03); Imm Gran Pct Auto 0.4 % (0.0-0.4); Lymphocytes Absolute Auto 2.5 X10*3/uL (1.2-4.9); Lymphocytes Percent Auto 30.6 % (20-40); MANUAL DIFF FLAG NO; Mean Corpuscular HGB Conc 33.3 g/dl (31.0-35.0); Mean Corpuscular Hemoglobin 27.8 pg (27.0-33.0); Mean Corpuscular Volume 83.5 fL (80.0-98.0); Mean Platelet Volume 8.6 fL (9.4-12.3); Monocytes Absolute Auto 0.4 X10*3/uL (0.1-1.2); Monocytes Percent Auto 5.3 % (2-11); Neutrophils Absolute Auto 5.1 x10*3/uL (2.0-8.3); Platelet Count 432 X10*3/uL (160-400); Red Blood Count 4.74 X10*6/uL (4.20-5.50); Red Cell Distribution Width 12.9 % (11.0-16.0); White Blood Count 8.3 X10*3/uL (4.8-10.8)
[2023-12-04 04:49] LABS: Alanine Aminotransferase 17 U/L (0-31); Albumin Level 4.4 g/dL (3.5-5.0); Alkaline Phosphatase 78 U/L (39-117); Anion Gap 11 (12-20); Aspartate Amino Transferase 14 U/L (5-31); Bilirubin Total 0.4 mg/dL (0.0-1.0); Blood Urea Nitrogen 16 mg/dL (9-16); Calcium 9.7 mg/dL (8.4-10.2); Carbon Dioxide 26 mmol/L (22-29); Chloride 106 mmol/L (96-108); Creatinine Clr Calc Pharmacy 123.1; Estimated Glomerular Filt Rate > 60; Glucose Random 93 mg/dL (60-115); Potassium 3.9 mmol/L (3.3-5.1); Sodium 139 mmol/L (135-145); Total Protein 8.3 g/dL (6.5-8.0)
--- NOTE | 2023-12-04 06:39 | ED.GENADULT ---
HPI - General Adult General Chief complaint: Wound/Laceration Stated complaint: wound infection, gotten worse Time Seen by Provider: 12/04/23 06:38 Source: patient Mode of arrival: ambulatory Limitations: no limitations History of Present Illness HPI narrative: Patient is an otherwise healthy, 33 year old, assigned female at , presenting to the ED because of a wound on her right neck that has not healed. Patient was recently hospitalized from 11/11/2023-11/13/2023, for an abscess on the right side of her neck close to her jaw line. During that hospital course, she received piperacillin-tazobactam and vancomycin as antibiotics. Patient was then discharged on a 7 day course of doxycycline and completed it as directed. Patient presents today, two weeks after finishing her course of doxycycline, with a subsequent wound that has formed a few centimeters inferior to the initial abscess. Denies fever, headache, dizziness, changes to vision, SOB, chest pain, and body aches. Denies history of IVDA, sick contacts, or any recent travel. MD complaint: Skin abcess Onset (ago): day(s) (6) Location: neck (Right side) Radiation: non-radiation Severity: mild Severity scale (1-10): 2 Pain Consistency: intermittent Relieving factors: none Exacerbating factors: none Associated symptoms: denies other symptoms Treatments prior to arrival: other (Antibiotics - doxycycline) Related Data Home Medications Medication Instructions Recorded Confirmed acetaminophen 325 mg tablet 650 mg PO Q6H PRN Pain 11/11/23 11/11/23 sertraline 50 mg tablet 50 mg PO DAILY 11/11/23 11/11/23 Previous Rx's Medication Instructions Recorded doxycycline hyclate 100 mg capsule 100 mg PO BID #14 caps 11/13/23 cephalexin 500 mg capsule 500 mg PO Q6H 7 days #28 caps 12/04/23 doxycycline hyclate 100 mg tablet 100 mg PO BID 7 days #14 tabs 12/04/23 Allergies Allergy/AdvReac Type Severity Reaction Status Date / Time tree and shrub pollen [TREE] Allergy Intermediate NASAL Verified 12/04/23 04:28 CONGESTION Review of Systems Constitutional: Constitutional: Reports no additional constitutional complaints, Denies chills, Denies fever(s), Denies headache(s) and Denies night sweats Eyes: Eyes: Reports no additional eye complaints, Denies blurry vision, Denies change in vision, Denies diplopia, Denies eye discharge, Denies loss of vision and Denies eye pain ENT: Denies dizziness, Denies headache(s), Denies nasal congestion and Denies sore throat Comments: abscess to right neck Cardiovascular: Cardiovascular: Reports no additional cardiovascular complaints, Denies chest pain, Denies lightheadedness, Denies Loss of Consciousness and Denies dyspnea Respiratory: Respiratory: Reports no additional respiratory complaints and Denies dyspnea Gastrointestinal: Gastrointestinal: Reports no additional gastrointestinal complaints, Denies abdominal pain, Denies melena, Denies hematochezia, Denies change in bowel habits and Denies change in stool character Genitourinary: Genitourinary: Denies hematuria, Denies urinary frequency, Denies dysuria, Denies urinary incontinence, Denies urinary hesitancy and Denies urinary urgency Musculoskeletal: Musculoskeletal: Reports no additional musculoskeletal complaints, Denies numbness and Denies tingling Neurologic: Denies dizziness, Denies headache(s), Denies loss of vision, Denies numbness and Denies tingling Psychiatric: Psychiatric: Reports no additional psychiatric complaints Endocrine: Endocrine: Reports no additional endocrine complaints Hematologic/Lymphatic: Hematologic/Lymphatic: Reports no additional hematologic/lymphatic complaints Allergic/Immunologic: Allergic/Immunologic: Reports no additional allergic/immunologic complaints [facility] Past Medical History Attestation statement: The following information was validated with the patient. Source: old records reviewed and nursing notes reviewed Medical History Anxiety No known health problems Social History Social History Household Members: Significant Other Housing: House Do you presently have visiting nurse or other home services: No Patient Tobacco Use Status: Never used Tobacco Advance Directives: No Advance Directives Information Provided: No service: No Physical Exam ED Vital Signs: Vital Signs - 24 hr 12/04/23 04:21 12/04/23 08:03 Temperature 98.6 F 98.6 F Pulse Rate 75 99 Respiratory Rate 18 16 Blood Pressure 132/86 130/87 Pulse Oximetry 98 100 Oxygen Delivery Method Room Air Room Air BMI result Body Mass Index 39.5 Const General: cooperative, no acute distress, alert and awake Nutritional Appearance: obese Orientation/consciousness: patient oriented x3 Limitations: no limitations HENMT Head: Yes normal to inspection Ears: hearing grossly normal bilaterally General nose exam: Normal external nose present Face and sinus: Yes normal facial exam Mouth: Normal oral and palatal mucosa present Throat: Yes posterior oropharynx normal Eyes General: appearance normal, both eyes and all related structures Periorbital: periorbital findings normal Eyelids: Yes eyelids normal Conjunctivae: conjunctivae normal Pupils: Equal, round and reactive pupils present EOM: EOMs intact bilaterally Neck Neck: Yes full ROM and Yes no lymphadenopathy Neck images: 1. small open wound actively draining pus Chest Chest palpation & inspection: normal inspection of the chest Resp Effort & Inspection: normal respiratory effort and able to speak in complete sentences Auscultation: clear to auscultation bilaterally Cardio Jugular venous distension: no JVD Palpation: normal PMI Rate: regular rate Rhythm: regular rhythm GI Inspection: Yes normal to inspection Skin Lesions: lesion noted ulcer right lateral neck size (1x1 cm), borders well-defined, color red, morphology, surface indurated, with discharge (purulent) and with an erythematous base and tender Wounds: fistulous tract Neuro General: patient oriented x3 Cranial nerves: Yes Equal, round and reactive pupils present Cognition (Neuro): normal cognition Motor exam (neuro): 5/5 motor strength present throughout Sensory Exam: Normal double simultaneous stimulation for sensation Coordination: [id number] test normal Extrem General: Yes normal to inspection, Yes full ROM and Yes capillary refill normal Psych Appearance: grossly normal Mental Status: mental status grossly normal Affect: normal affect Attitude: cooperative Thought process: Normal thought process present Thought content: Normal thought content present Insight: Good insight present (Psych) Medical Decision Making Medical Decision Making MDM Narrative: Patient is a 33 year old assigned female at with a history of recent neck infection presenting to the emergency department today with a new neck abscess. Patient's physical exam was as noted in the physical exam portion of this note. Patient's blood work was unremarkable. Patient's new abscess is approximately 1cm posterior of the initial abscessed area. It is possible this is a fistula / tracking infection however, patient's clinical presentation does not warrant additional imaging at this time. Will start patient on PO ABX and have her follow up with ENT, general surgeons, and the wound center. I explained my physical exam findings as well as all test results to the patient. I answered all questions asked by the patient. I stressed the importance of the patient taking her medication as prescribed. I stressed the importance of the patient following up with her primary care provider, the wound center, general surgeon, and an ENT. I stressed the importance of the patient returning to the emergency department immediately if her symptoms were to worsen or if she were to develop any dizziness, shortness of breath, difficulty breathing, chest pain, blurry vision, loss of vision, nausea, vomiting, abdominal pain, fever, chills, back pain, or any other complaints. Patient verbalized agreement and understanding with this treatment plan and discharge. Differential Diagnosis Differential Diagnoses: The differential diagnosis associated with the presentation includes Abscess Skin infection Cellulitis Admission/Observation Consideration of admission/observation: Escalation of care including admission/observation considered Patient would have been admitted to the hospital had her work up had any findings where hospital admission was appropriate and her clinical presentation warranted hospital admission. Lab Data [facility] Lab Attestation statement: I reviewed the patient's lab results. My interpretation of these results are in the [facility] Rationale portion of this note. 12/04/23 04:31 12/04/23 04:31 Labs: Lab Results 12/04/23 Range/Units 04:31 WBC 8.3 (4.8-10.8) X10*3/uL RBC 4.74 (4.20-5.50) X10*6/uL Hgb 13.2 (12.0-16.0) g/dl Hct 39.6 (37.0-47.0) % MCV 83.5 (80.0-98.0) fL MCH 27.8 (27.0-33.0) pg MCHC 33.3 (31.0-35.0) g/dl RDW 12.9 (11.0-16.0) % Plt Count 432 H (160-400) X10*3/uL MPV 8.6 L (9.4-12.3) fL Immature Gran % (Auto) 0.4 (0.0-0.4) % Neut % (Auto) 61.0 (45-73) % Lymph % (Auto) 30.6 (20-40) % [place] % (Auto) 5.3 (2-11) % Eos % (Auto) 1.9 (0-4) % Baso % (Auto) 0.8 (0-2) % Lymph # (Auto) 2.5 (1.2-4.9) X10*3/uL Aurora # (Auto) 0.4 (0.1-1.2) X10*3/uL Eos # (Auto) 0.2 (0.0-0.4) X10*3/uL Baso # (Auto) 0.1 (0.0-0.2) X10*3/uL Abs Immat Gran (auto) 0.03 (0.00-0.03) X10*3/uL Absolute Neuts (auto) 5.1 (2.0-8.3) x10*3/uL Absolute Nucleated RBC 0.000 (0.0-0.012) X10*3/uL Nucleated RBC % (auto) 0.0 (0.0-0.2) /100WBC Sodium 139 (135-145) mmol/L Potassium 3.9 (3.3-5.1) mmol/L Chloride 106 (96-108) mmol/L Carbon Dioxide 26 (22-29) mmol/L Anion Gap 11 L (12-20) BUN 16 (9-16) mg/dL Creatinine 0.82 (0.5-1.4) mg/dL Estim Creat Clear Calc 123.1 Estimated GFR > 60 Random Glucose 93 (60-115) mg/dL Calcium 9.7 D (8.4-10.2) mg/dL Total Bilirubin 0.4 (0.0-1.0) mg/dL AST 14 (5-31) U/L ALT 17 (0-31) U/L Alkaline Phosphatase 78 (39-117) U/L Total Protein 8.3 H (6.5-8.0) g/dL Albumin 4.4 (3.5-5.0) g/dL Tests considered The following testing was considered but not selected: A CT scan of the face was considered however, the patient's current clinical presentation does not warrant it. I explained this to the patient who verbalized understanding and agreement. Prescription Management I considered prescription management with: Antibiotic (patient prescribed an antibiotic) Discharge Plan Discharge Clinical Impression: Abscess Patient Disposition: Home, Self-Care Instructions: Abscess (ED) Additional Instructions: Take your medication as prescribed. I provided information for the general surgeon, ENT, and the wound center. I recommend following up with all of them for a coordinated approach. Follow up with your primary care provider. Return to the emergency department immediately if your symptoms worsen or if you develop any dizziness, shortness of breath, difficulty breathing, chest pain, blurry vision, loss of vision, nausea, vomiting, abdominal pain, fever, chills, back pain, or any other complaints. Prescriptions: New cephalexin 500 mg capsule 500 mg PO Q6H 7 Days Qty: 28 0RF doxycycline hyclate 100 mg tablet 100 mg PO BID 7 Days Qty: 14 0RF No Action sertraline 50 mg tablet 50 mg PO DAILY acetaminophen 325 mg Tablet 650 mg PO Q6H PRN (Reason: Pain) doxycycline hyclate 100 mg capsule 100 mg PO BID Qty: 14 0RF [place] [facility]Provider Group] (Call to establish and follow up with a general surgeon.) [facility] [place] [facility] [place] [facility] [Provider Group] (Call to establish and follow up with the wound center. ) Martha Washington NP [Primary Care Provider] - Broderick Sheikh [Physician] - (Call to establish and follow up with an ENT.) Discharge Date/Time: 12/04/23 08:04 Print Language: Azeri
[2023-12-04 08:03] VITALS: BP 130/87; PULSE 99; RESP 16; TEMP 37; O2SAT 100
== END 2023-12-04 08:04 | disposition home or self-care (01) ==
PROVIDERS: Emergency Provider Emergency Medicine; PCP Nurse Practitioner Adult Health
DX: L02.11 Cutaneous abscess of neck (principal)
CPT/HCPCS: 36415; 80053; 85025; 99283; 99284

== ENCOUNTER 2023-12-10 08:55 | Outpatient (AMB) | payer BC, SELFPAY ==
--- NOTE | 2023-12-10 09:02 | A.OFFVIS_ITS ---
Intake Vital Signs 12/10/23 09:05 Height 5 ft 6 in Weight 249 lb BMI 40.2 BP 134/74 Blood Pressure Location Rt brachial Position Sitting Pulse 96 Intake Visit Reasons: Abscess on Rt neck Intake Note: Patient referred after ER visit on 12-04-23. Was seen for infected lesion on Rt neck. Lesion present for 1m. Patient c/o: redness, oozing, tender to touch. Patient on Cephalexin and Doxycycline. [employer] Required: No Accompanied by: Spouse Allergies tree and shrub pollen [TREE] Allergy (Intermediate, Verified 12/10/23 09:03) NASAL CONGESTION HPI HPI Comments History of Present Illness Details Patient presents with her significant other. Approximately 3 weeks ago she had a right upper neck/sub mandibular abscess which was drained by the ER. She subsequently developed a 2nd lesion which has spontaneously drained. Patient presents here for follow-up. This has happened about a week ago. She is currently on antibiotics by her medical doctor. Chart was reviewed and patient evaluated [facility] Medical History Anxiety No known health problems Surgical History (Updated 12/10/23 @ 09:16 by Josue Alston MD) [place] teeth extracted Social History Household Members: Significant Other Housing: House Do you presently have visiting nurse or other home services: No Patient Tobacco Use Status: Never used Tobacco service: No Physical Exam Vital Signs: Last Vital Signs Pulse 96 12/10/23 09:05 BP 134/74 12/10/23 09:05 BMI result Body Mass Index 40.2 HEENT Other: Patient has completely healed the right submandibular abscess status post ER I&D. Proximally 2 cm below this is a 2nd carbuncle type lesion which has spontaneously drained and is actually granulating in. No evidence of any infective process or residual abscess or cellulitis. Assessment & Plan Assessment & Plan (1) Carbuncle and furuncle of face: Code(s): L02.03 - Carbuncle of face; L02.02 - Furuncle of face Plan Patient was reassured. She has been given local instructions, complete recurrent antibiotic course, and will see me in the proximal weeks time or p.r.n.. All questions answered. Coding Level of Care Code New Pt Level 4 (29522) Diagnoses Carbuncle and furuncle of face L02.03; L02.02
[2023-12-10 09:05] VITALS: BP 134/74; PULSE 96; BMI 40.2
== END 2023-12-10 09:13 | disposition home or self-care (01) ==
PROVIDERS: PCP Nurse Practitioner Adult Health; Visit Provider Surgery
DX: L02.03 Carbuncle of face (principal); L02.02 Furuncle of face
CPT/HCPCS: 99204

== ENCOUNTER → 2023-12-10 08:55 | Outpatient (BNVA) | payer BC, SELFPAY | PROVIDERS: PCP Nurse Practitioner Adult Health; Visit Provider Surgery ==